=== PATIENT | female | born 1975 ===

== ENCOUNTER 2018-01-07 23:38 | Emergency (ER) | payer BC ==
--- NOTE | 2018-01-07 23:56 | Emergency Department Record ---
History of Present Illness - General Chief Complaint: Animal Bite Stated Complaint: FACIAL LACERATION Time Seen by Provider: 01/07/18 23:41 Source: Patient Mode of Arrival: Ambulatory Limitations: No limitations - History of Present Illness Initial Comments: The patient was bit by her own dog about an hour ago. She sustained superficial lacerations to the L medial eyebrow and L cheek area. Her Td is UTD. The dog's rabies vaccinations are also UTD. Complaint: Animal bite Onset/Timin -: Hour(s) Location - General: Face Animal: Dog Description: Household pet, Immunizations UTD, Appeared well Mechanism: Bite Severity scale (1-10): 3 Context: Animals fighting Associated Symptoms: Erythema - Related Data Patient Tetanus UTD (within 5 yrs): Yes (2016 estimated) Previous Rx's Medication Instructions Recorded Amoxicillin/Potassium Clav 1 each PO BID #14 tablet 01/08/18 [Augmentin 875Mg/125Mg] Allergies Allergy/AdvReac Type Severity Reaction Status Date / Time No Known Drug Allergies Allergy Verified 01/07/18 23:47 Travel Screening - Travel/Exposure Within Last 30 Days Have you traveled within the last 30 days?: No Review of Systems Constitutional: Denies: Chills, Fever Past Medical History - SOCIAL HISTORY Smoking Status: Current every day smoker Alcohol Use: None Drug Use: None - RESPIRATORY Hx Respiratory Disorders: No - CARDIOVASCULAR Hx Cardio Disorders: No - NEURO Hx Neuro Disorders: No - GI Hx GI Disorders: No - Hx Genitourinary Disorders: No - ENDOCRINE Hx Endocrine Disorders: No - MUSCULOSKELETAL Hx Musculoskeletal Disorders: No - PSYCH Hx Psych Problems: No - HEMATOLOGY/ONCOLOGY Hx Hematology/Oncology Disorders: No Family Medical History Any Significant Family History?: Yes Hx Diabetes: Grandparents Physical Exam - General General Appearance: Alert, Cooperative, No acute distress - Head Head exam: Atraumatic, Normocephalic, Normal inspection Image of Face/Head: 1 - 8 mm vertical lac. 2 - 1 cm horizontal lac. - Eye Eye exam: PERRL, Conjunctival injection. negative: Normal appearance (There is an 8 mm lac to the medial L eyebrown.) - ENT ENT exam: negative: Normal exam (There is a 1 cm superficial lac to the L maxillary area.) Course Vital Signs 01/07/18 23:44 Temperature 98.5 F Pulse Rate 109 H Respiratory 16 Rate Blood Pressure 134/91 Pulse Ox 98 - Reevaluation(s) Reevaluation #1: Procedure note: the L facial lacerations were anesth. with total of 2 cc's of Lido 1% with epi. The lac's were very superficial and cleansed with sterile saline and closed with a total of 5 5.0 nylon sutures. There were no complications. 01/08/18 00:04 01/08/18 00:30 Disposition Disposition: Discharge Clinical Impression: Facial laceration Qualifiers: Encounter type: initial encounter Qualified Code(s): S01.81XA - Laceration without foreign body of other part of head, initial encounter Disposition: Home, Self-Care Condition: (2) Stable Instructions: Animal Bite (ED) Additional Instructions: Keep the wounds dry for 2 days then wash daily with soap and water. Take the Augmentin as directed and have the sutures removed in 5-7 days. Return to the ER for any signs of infection. Prescriptions: Amoxicillin/Potassium Clav [Augmentin 875Mg/125Mg] 1 each PO BID #14 tablet Forms: Patient Portal Access Time of Disposition: 00:07 Quality - Quality Measures Quality Measures: N/A - Blood Pressure Screening View Details: Yes Does Patient Have Any of the Following: No Blood Pressure Classification: Hypertensive Reading Systolic Measurement: 134 Diastolic Measurement: 91 Screening for High Blood Pressure: < First Hypertensive BP, F/U Documented > [ G8950] First Hypertensive Follow-up Interventions: Referral to alternative/primary care provider.
[2018-01-07] MEDS ORDERED: AMOXICILLIN/POTASSIUM CLAV 875MG/125MG TABLET PO ONE (23:58)
== END 2018-01-08 00:36 | disposition home or self-care (01) ==
LOC: ER 23:38
DX: S01.112A Laceration without foreign body of left eyelid and periocular area, initial encounter (principal); S01.412A Laceration without foreign body of left cheek and temporomandibular area, initial encounter; W54.0XXA Bitten by dog, initial encounter; Y92.009 Unspecified place in unspecified non-institutional (private) residence as the place of occurrence of the external cause
CPT/HCPCS: 12011; 99283

== ENCOUNTER 2018-01-14 17:44 | Emergency (ER) | payer BC ==
--- NOTE | 2018-01-14 17:59 | Emergency Department Record ---
History of Present Illness - General Chief Complaint: Suture removal Stated Complaint: SUTURE REMOVED FACE Time Seen by Provider: 01/14/18 17:50 Source: Patient Mode of arrival: Ambulatory Limitations: No limitations - History of Present Illness MD Complaint: Suture/staple removal - Related Data Previous Rx's Medication Instructions Recorded Amoxicillin/Potassium Clav 1 each PO BID #14 tablet 01/08/18 [Augmentin 875Mg/125Mg] Allergies Allergy/AdvReac Type Severity Reaction Status Date / Time No Known Drug Allergies Allergy Verified 01/14/18 17:54 Past Medical History - SOCIAL HISTORY Smoking Status: Current every day smoker Drug Use: None - RESPIRATORY Hx Respiratory Disorders: No - CARDIOVASCULAR Hx Cardio Disorders: No - NEURO Hx Neuro Disorders: No - GI Hx GI Disorders: No - Hx Genitourinary Disorders: No - ENDOCRINE Hx Endocrine Disorders: No - MUSCULOSKELETAL Hx Musculoskeletal Disorders: No - PSYCH Hx Psych Problems: No - HEMATOLOGY/ONCOLOGY Hx Hematology/Oncology Disorders: No Family Medical History Hx Diabetes: Grandparents Physical Exam - General General Appearance: Alert, Oriented x3, Cooperative, No acute distress (The patient had 5 sutures removed without difficulty or complications.) Disposition Disposition: Discharge Clinical Impression: Visit for suture removal Disposition: Home, Self-Care Condition: (2) Stable Instructions: Stitches Removal (ED) Additional Instructions: Return to the ER for any problems. Time of Disposition: 17:58 Quality - Quality Measures Quality Measures: N/A - Blood Pressure Screening View Details: Yes Does Patient Have Any of the Following: No Blood Pressure Classification: Pre-Hypertensive BP Reading Systolic Measurement: 124 Diastolic Measurement: 85 Screening for High Blood Pressure: < Pre-Hypertensive BP, F/U Documented > [ G8950] Pre-Hypertensive Follow-up Interventions: Referral to alternative/primary care provider.
== END 2018-01-14 18:00 | disposition home or self-care (01) ==
LOC: ER 17:44
DX: Z48.02 Encounter for removal of sutures (principal); F17.210 Nicotine dependence, cigarettes, uncomplicated